=== PATIENT | female | born 2000 | race Hispanic/Latino ===

== ENCOUNTER 2018-07-24 19:52 | Emergency (ER) | payer SELFPAY ==
[2018-07-24] MEDS ORDERED: KETOROLAC TROMETHAMINE 30MG/ML ONE (21:53)
== END 2018-07-24 22:18 | disposition home or self-care (01) ==
LOC: EDH 19:52
DX: L05.01 Pilonidal cyst with abscess (principal)
CPT/HCPCS: 10160; 96372; 99284; J1885